=== PATIENT | female | born 1955 | race Caucasian/White ===

== ENCOUNTER → 2024-06-24 | Day surgery (SDC) | payer MEDICARE ==
[2024-06-23 10:32] LABS: BASOPHILS # (AUTO) 0.1 (0.0-0.1); BASOPHILS % 0.6 % (0.0-1.0); EOSINOPHILS # (AUTO) 0.2 (0.0-0.4); EOSINOPHILS % 2.6 % (0.0-6.0); HEMATOCRIT 42.3 % (34.2-44.1); HEMOGLOBIN 13.7 g/dL (12.0-16.0); LYMPHOCYTES # (AUTO) 2.8 (1.0-3.2); LYMPHOCYTES % 32.8 % (18.0-39.1); MEAN CORPUSCULAR HEMOGLOBIN 31.2 pg (28-32); MEAN CORPUSCULAR HGB CONC 32.4 g/dL (31-35); MEAN CORPUSCULAR VOLUME 96.4 fL (81-99); MONOCYTES # (AUTO) 0.9 (0.2-0.8); MONOCYTES % 10.1 % (4.4-11.3); NEUTROPHILS # (AUTO) 4.3 (2.1-6.9); NEUTROPHILS % 51.8 % (38.7-80.0); PLATELET COUNT 246 x10e3/uL (140-360); RED BLOOD COUNT 4.39 x10e6/uL (3.6-5.1); RED CELL DISTRIBUTION WIDTH 12.8 % (11.7-14.4); WHITE BLOOD COUNT 8.39 x10e3/uL (4.8-10.8)
[2024-06-23 10:51] LABS: INR 0.9; PARTIAL THROMBOPLASTIN TIME 30.3 seconds (23.8-35.5); PROTHROMBIN TIME 12.7 seconds (11.9-14.5)
[2024-06-23 11:09] LABS: ANION GAP 14.4 mmol/L (8-16); CALCIUM 9.6 mg/dL (8.4-10.2); CREATININE, SERUM 1.06 mg/dL (0.57-1.11); POTASSIUM 4.4 mmol/L (3.5-5.1)
[~2024-06-24] MED LIST: ALL DAY ALLERGY10 MG PO; ASHWAGANDHA62.5 MG; B-COMPLEX1 EACH; BIOTIN1 MG; D3-5000125 MCG; FENTANYL CITRATE/PF 100MCG/2 ML INJ ONE; HYALURONIC ACID60 MG; HYOSCYAMINE SULFATE 0.5 MG/ML INJ ONE; METOPROLOL SUCC50 MG PO; NEXIUM20 MG PO; POTASSIUM CITR10 MEQ PO; PROPOFOL IV EMULSION 10 MG/ML 20 ML VIAL ONE; PROPOFOL IV EMULSION 50 ML IV ONE; PROTONIX20 MG PO; VITAMIN C1000 MG PO
[2024-06-24] MEDS: LACTATED RINGER'S 1,000 ML ONE (13:12)
[2024-06-24 16:08] VITALS: BP 133/74; PULSE 87; RESP 17; O2SAT 96
== END | disposition home or self-care (01) ==
LOC: OR 12:20
PROVIDERS: ATTEND Internal Medicine Gastroenterology
DX: Z12.11 Encounter for screening for malignant neoplasm of colon (principal); D12.2 Benign neoplasm of ascending colon; D17.5 Benign lipomatous neoplasm of intra-abdominal organs; K29.50 Unspecified chronic gastritis without bleeding; K31.89 Other diseases of stomach and duodenum; E83.59 Other disorders of calcium metabolism; K44.9 Diaphragmatic hernia without obstruction or gangrene; K64.8 Other hemorrhoids; I12.9 Hypertensive chronic kidney disease with stage 1 through stage 4 chronic kidney disease, or unspecified chronic kidney disease; N18.30 Chronic kidney disease, stage 3 unspecified; Z71.89 Other specified counseling; E03.9 Hypothyroidism, unspecified; Z91.041 Radiographic dye allergy status; Z01.810 Encounter for preprocedural cardiovascular examination; Z01.812 Encounter for preprocedural laboratory examination; Z79.899 Other long term (current) drug therapy; Z68.34 Body mass index [BMI] 34.0-34.9, adult; Z71.3 Dietary counseling and surveillance; Z87.440 Personal history of urinary (tract) infections; Z80.0 Family history of malignant neoplasm of digestive organs
CPT/HCPCS: 36415; 43239; 45385; 80048; 85025; 85610; 85730; 88305; 93005; J1980; J2470; J2704 ×2; J3010; J7121